=== PATIENT | female | born 1955 | race Caucasian/White ===

== ENCOUNTER → 2016-11-26 | Outpatient (CLI) | payer OTHER ==
--- NOTE | 2016-11-26 09:21 | US ---
EXAMINATION TYPE: US abdomen complete DATE OF EXAM: 11/26/2016 9:09 AM COMPARISON: NONE CLINICAL HISTORY: R94.5 Abnormal Results Of Function Study Of Liver. Abnormal labs. No pain. NPO. EXAM MEASUREMENTS: Liver Length: 14.5 cm Gallbladder Wall: 0.1 cm CBD: 0.2 cm Spleen: 10.2 cm Right Kidney: 10.4 x 5.1 x 4.5 cm Left Kidney: 11.7 x 5.0 x 5.0 cm Pancreas: echogenic Liver: echogenic. Focal fatty sparing seen near portal hepatis = 1.7 x 1.3 cm Gallbladder: wnl Evidence for sonographic Molina's sign: neg CBD: wnl Spleen: wnl Right Kidney: wnl Left Kidney: wnl Upper IVC: seen Abd Aorta: seen The liver is of increased echogenicity. Echogenicity of this may reflect MRI.. The intrahepatic port ion of the IVC and proximal abdominal aorta are within normal limits. There is no evidence of cholel ithiasis. Common bile duct is unremarkable. The visualized portions of the pancreas are homogenous. The spleen is unremarkable. Kidneys are symmetric and free of hydronephrosis. No renal lesions ar e seen. IMPRESSION: 1. Hepatic steatosis with focal fatty sparing.
== END ==
LOC: RADUSWWP 08:39
PROVIDERS: ATTEND Internal Medicine Geriatric Medicine
DX: K76.0 Fatty (change of) liver, not elsewhere classified (principal)
CPT/HCPCS: 36415; 76700; 80074

== ENCOUNTER → 2016-11-26 | Outpatient (CLI) | payer OTHER ==
[2016-11-26 10:33] LABS: Hepatitis B Surface Ag Index 0.07
[2016-11-26 10:39] LABS: Hepatitis B Core IgM Index 0.03
[2016-11-26 10:50] LABS: Hepatitis C Virus IgG Ab Negative (Negative); Hepatitis C Virus IgG Index 0.01
== END | disposition home or self-care (01) ==
LOC: LABWHC1 09:11
PROVIDERS: ATTEND Internal Medicine Geriatric Medicine
DX: R94.5 Abnormal results of liver function studies (principal)
CPT/HCPCS: 36415; 80074

== ENCOUNTER → 2016-12-10 | Outpatient (CLI) | payer OTHER ==
[2016-12-10 14:12] LABS: Basophils # (A) 0.1 k/uL (0-0.2); Basophils % (A) 1 %; CH 29.9; CHCM 33.7; Eosinophils # (A) 0.1 k/uL (0-0.7); Eosinophils % (A) 2 %; HCT 41.7 % (34.0-46.0); HDW 2.81; HGB 13.7 gm/dL (11.4-16.0); Luc # (Auto) 0.12; Luc % (Auto) 2; Lymphocytes # (A) 2.1 k/uL (1.0-4.8); Lymphocytes % (A) 30 %; MCH 29.3 pg (25.0-35.0); MCHC 32.9 g/dL (31.0-37.0); MCV 89.3 fL (80.0-100.0); Mean Platelet Volume 8.4; Monocytes # (A) 0.2 k/uL (0-1.0); Monocytes % (A) 3 %; Neutrophils # (A) 4.4 k/uL (1.3-7.7); Neutrophils % (A) 62 %; RBC 4.68 m/uL (3.80-5.40); RDW 14.1 % (11.5-15.5)
== END | disposition home or self-care (01) ==
LOC: LABWHC1 13:38
PROVIDERS: ATTEND Obstetrics & Gynecology
DX: Z01.810 Encounter for preprocedural cardiovascular examination (principal); Z01.812 Encounter for preprocedural laboratory examination; N84.0 Polyp of corpus uteri; N95.0 Postmenopausal bleeding
CPT/HCPCS: 36415; 85025; 93005

== ENCOUNTER 2016-12-16 07:12 | Day surgery (SDC) | payer OTHER ==
[2016-12-13 09:23] VITALS: BMI 30.4
[~2016-12-16 07:12] MED LIST: DEXAMETHASONE SOD PHOSPHATE 10 MG/ML 1 ML VIAL IV ONE; HYDROmorphone 1 MG/ML 1 ML SYRINGE IVP PRN; LACTATED RINGERS 1,000 ML IV SCH; MIDAZOLAM 2 MG/2 ML VIAL IV PRN; ONDANSETRON 4 MG/2 ML VIAL IVP ONE; Pre Op ABX Message 1 EACH MISC MISCELLANE ONE; SCOPOLAMINE 1.5MG/72HR PATCH TRANSDERM ONE
[2016-12-16] MEDS ORDERED: LIDOCAINE 1% 20 ML VIAL (10MG/ML) FOR IV START INTRADERMA ONE (07:56)
[2016-12-16] MEDS ORDERED: LIDOCAINE 1%-EPI 1:100,000 20 ML VIAL SUBMUCOSAL ONE ×2 (08:34→08:55)
[2016-12-16] MEDS ORDERED: MIDAZOLAM 2 MG/2 ML VIAL ONE (08:37)
[2016-12-16] MEDS ORDERED: PROPOFOL 10 MG/ML 20 ML VIAL IV ONE (08:37)
[2016-12-16] MEDS ORDERED: KETOROLAC 30 MG/ML 1 ML VIAL ONE (08:37)
[2016-12-16] MEDS ORDERED: LIDOCAINE 1% INJ 10MG/ML (20 ML MDV) ONE (08:37)
[2016-12-16] MEDS ORDERED: fentaNYL (PF) 50 MCG/ML 2 ML AMP ONE (08:37)
--- NOTE | 2016-12-16 09:19 | P.OP ---
Date of Procedure: 12/16/16 Preoperative Diagnosis: Postmenopausal bleeding Endometrial polyp Postoperative Diagnosis: Same Procedure(s) Performed: Diagnostic hysteroscopy, polypectomy, dilation and curettage Anesthesia: MAC Surgeon: Brianna Argueta Estimated Blood Loss (ml): 0 IV fluids (ml): 500 Urine output (ml): 50 Pathology: other (Endometrial polyp and endometrial curettings) Condition: stable Disposition: PACU Indications for Procedure: Postmenopausal bleeding and findings on pelvic ultrasound consistent with endometrial polyp Operative Findings: On diagnostic hysteroscopy there is an intrauterine lesion consistent with endometrial polyp, base of the posterior fundus of the uterus. Remainder of endometrium appeared atrophic. Description of Procedure: After the patient was met in the preoperative holding area and all questions were answered, the patient was taken to the operating room. Anesthetic was administered without incident. She was positioned, prepped and draped in the dorsal lithotomy position. Bladder was drained for approximately 50 mL of clear urine. Single-sided speculum was placed in the vagina and the cervix was grasped anteriorly with a single-tooth tenaculum. Paracervical block with lidocaine plus epinephrine was placed. The uterus was sounded to 7 cm. The cervix was then sequentially dilated to allow for passage of the diagnostic hysteroscope. Hysteroscope was introduced and the above findings were noted. The hysteroscope was removed. The cervix was further dilated to allow for passage of the small sharp banjo curet. Prior to curettage the stone polyp forceps were introduced, the polyp was grasped and removed. Curettage was then undertaken with very scant specimen obtained. The hysteroscope was reintroduced and the. The polyp had been completely removed. No other intracavitary lesions were noted. Hysteroscope was removed. Tenaculum was removed and no active bleeding was noted. Speculum was removed. The patient was awoken from anesthetic and transported to the recovery area in stable condition. All counts reported to me as correct by the operating room staff.
[2016-12-16 09:21] VITALS: TEMP 96.8
[2016-12-16 09:26] VITALS: RESP 16
[2016-12-16] MEDS ORDERED: ONDANSETRON 4 MG/2 ML VIAL IVP ONE (11:05)
[2016-12-16 11:34] VITALS: BP 118/80; PULSE 77
== END 2016-12-16 11:47 | disposition home or self-care (01) ==
LOC: OR 07:12
PROVIDERS: ATTEND Obstetrics & Gynecology
DX: N85.01 Benign endometrial hyperplasia (principal); N84.0 Polyp of corpus uteri; N95.0 Postmenopausal bleeding; N85.8 Other specified noninflammatory disorders of uterus; E78.5 Hyperlipidemia, unspecified; Z79.899 Other long term (current) drug therapy; Z88.0 Allergy status to penicillin; Z88.2 Allergy status to sulfonamides
CPT/HCPCS: 81025; 88305; 58558; J2250; J1100; J2405; J2001; J3010; J1885; J2704

== ENCOUNTER → 2019-01-27 | Outpatient (CLI) | payer MEDICARE ==
--- NOTE | 2019-01-27 21:58 | BD ---
EXAMINATION TYPE: Axial Bone Density DATE OF EXAM: 01/27/2019 COMPARISON: NONE CLINICAL HISTORY: 63-year-old female osteoporosis Height: 5 FT 5 IN Weight: 180 FRAX RISK QUESTIONS: Alcohol (3 or more units per day): YES History of Fracture in Adulthood: YES Secondary Osteoporosis: 5. Chronic liver disease: FATTY RISK FACTORS HISTORY OF: Active: YES Postmenopausal woman: EARLY 50'S MEDICATIONS: Additional Medications: CRESTOR Additional History: EXAM MEASUREMENTS: Bone mineral densitometry was performed using the 51 [employer] System. Bone mineral density as measured about the Lumbar spine is: ----- L1-L4(G/cm2): 1.255 T Score Values are as follows: ----- L2: 0.6 ----- L3: 1.1 ----- L4: 0.5 ----- L1-L4: 0.6 BASELINE Bone mineral density about the R hip (g/cm2): 0.892 Bone mineral density about the L hip (g/cm2): 0.909 T Score values are as follows: -----R Neck: -1.0 -----L Neck: -0.9 -----R Total: 0.6 -----L Total: 0.8 BASELINE IMPRESSION: Normal (Values between +1 and -1 indicate normal bone mass). Consider repeating this study in 5 year s or sooner if there is some new clinical indication. However, note that measurements border on osteopenia at the right hip. NOTE: T-SCORE=SD OF THE YOUNG ADULT MEAN.
--- NOTE | 2019-01-28 13:14 | MM ---
Reason for exam: screening (asymptomatic). Last mammogram was performed 2 years and 1 month ago. History: Patient is postmenopausal and is nulliparous. Took hormonal contraceptives for 10 years. Physical Findings: A clinical breast exam by your physician is recommended on an annual basis and results should be correlated with mammographic findings. MG 3D Screening Mammo W/Cad Bilateral CC and MLO view(s) were taken. Prior study comparison: December 23, 2016, mammogram. January 05, 2015, mammogram. The breast tissue is heterogeneously dense. This may lower the sensitivity of mammography. No suspicious abnormality. No significant changes when compared with prior studies. ASSESSMENT: Negative, BI-RAD 1 RECOMMENDATION: Routine screening mammogram of both breasts in 1 year.
== END | disposition home or self-care (01) ==
LOC: RADMAMWWP 08:43
PROVIDERS: ATTEND Internal Medicine
DX: Z12.31 Encounter for screening mammogram for malignant neoplasm of breast (principal); M81.0 Age-related osteoporosis without current pathological fracture
CPT/HCPCS: 77063; 77067; 77080

== ENCOUNTER 2019-03-05 11:45 | Day surgery (SDC) | payer MEDICARE ==
[2019-03-01 16:06] VITALS: BMI 29.9
[2019-03-05 09:46] VITALS: TEMP 97.5
--- NOTE | 2019-03-05 11:38 | P.PCN ---
Date of Procedure: 03/05/19 Procedure(s) Performed: BRIEF HISTORY: Patient is a 63-year-old pleasant female, scheduled for an elective colonoscopy as a part of screening for colorectal neoplasia PROCEDURE PERFORMED: Colonoscopy snare polypectomy. PREOPERATIVE DIAGNOSIS: Screening for colon cancer. IV sedation per Anesthesia. PROCEDURE: After informed consent was obtained, the patient, was brought into the endoscopy unit. IV sedation was administered by Anesthesia under continuous monitoring. Digital rectal examination was normal. Initially the Olympus CF-160 flexible video colonoscope was then inserted in the rectum, gradually advanced into the cecum without any difficulty. Careful examination was performed as the scope was gradually being withdrawn. Ileocecal valve and the appendiceal orifice were visualized and appeared normal. Prep was excellent. Mucosa of the cecum, ascending colon, appeared normal. The transverse colon there was a 5 mm and 1 cm broad-based polyps removed by snare polypectomy. In the descending colon there was a 3 mm sessile polyp removed by snare polypectomy. Rest of the transverse colon, descending colon, sigmoid colon, and rectum appeared normal. Retroflexion was performed in the rectum and no lesions were seen. The patient tolerated the procedure well. IMPRESSION: 5 mm and 1 cm transverse colon polyps status post polypectomy 3 mm descending colon polyp status post polypectomy RECOMMENDATIONS: Findings of this examination were discussed with the patient well as her family. She was advised to follow with the biopsy results. If the biopsy shows an adenoma, she can have a repeat colonoscopy in 3 years..
[~2019-03-05 11:45] MED LIST changes: -DEXAMETHASONE SOD PHOSPHATE 10 MG/ML 1 ML VIAL IV ONE; -HYDROmorphone 1 MG/ML 1 ML SYRINGE IVP PRN; +LIDOCAINE 1% 20 ML VIAL (10MG/ML) FOR IV START INTRADERMA ONE; -MIDAZOLAM 2 MG/2 ML VIAL IV PRN; -ONDANSETRON 4 MG/2 ML VIAL IVP ONE; +PROPOFOL 10 MG/ML 20 ML VIAL IV ONE; -Pre Op ABX Message 1 EACH MISC MISCELLANE ONE; -SCOPOLAMINE 1.5MG/72HR PATCH TRANSDERM ONE
[2019-03-05 12:06] VITALS: BP 144/90; PULSE 72; RESP 18
== END 2019-03-05 11:54 | disposition home or self-care (01) ==
LOC: ORWHC2ENDO 11:45
PROVIDERS: ATTEND Internal Medicine Gastroenterology
DX: Z12.11 Encounter for screening for malignant neoplasm of colon (principal); D12.3 Benign neoplasm of transverse colon; D12.4 Benign neoplasm of descending colon; Z88.0 Allergy status to penicillin; Z88.2 Allergy status to sulfonamides; E78.5 Hyperlipidemia, unspecified; Z79.899 Other long term (current) drug therapy
CPT/HCPCS: 88305; 45385; J2704

== ENCOUNTER → 2020-08-29 | Outpatient (CLI) | payer MEDICARE ==
--- NOTE | 2020-08-30 13:40 | MM ---
Reason for exam: screening (asymptomatic). Last mammogram was performed 1 year and 7 months ago. History: Patient is postmenopausal and is nulliparous. Took hormonal contraceptives for 10 years. Physical Findings: A clinical breast exam by your physician is recommended on an annual basis and results should be correlated with mammographic findings. MG 3D Screening Mammo W/Cad Bilateral CC and MLO view(s) were taken. Prior study comparison: January 27, 2019, bilateral MG 3d screening mammo w/cad. December 23, 2016, mammogram. The breast tissue is heterogeneously dense. This may lower the sensitivity of mammography. There are benign appearing round calcifications bilaterally. There is no discrete abnormality. ASSESSMENT: Benign, BI-RAD 2 RECOMMENDATION: Routine screening mammogram of both breasts in 1 year.
== END | disposition home or self-care (01) ==
LOC: RADMAMWWP 10:29
PROVIDERS: ATTEND Internal Medicine Geriatric Medicine
DX: Z12.31 Encounter for screening mammogram for malignant neoplasm of breast (principal)
CPT/HCPCS: 77063; 77067